=== PATIENT | female | born 1970 | race Asian ===

== ENCOUNTER → 2017-08-31 | Outpatient (CLI) | payer OTHER | LOC: CIMAGING 14:06 | PROVIDERS: ATTEND Family Medicine | DX: Z12.31 Encounter for screening mammogram for malignant neoplasm of breast (principal) ==

== ENCOUNTER → 2018-10-04 | Outpatient (CLI) | payer OTHER | LOC: CIMAGING 13:01 | PROVIDERS: ATTEND Physician Assistant | DX: Z12.31 Encounter for screening mammogram for malignant neoplasm of breast (principal) ==